=== PATIENT | male | born 1955 | race Caucasian/White ===

== ENCOUNTER 2017-10-07 13:26 | Emergency (ER) | payer SELFPAY ==
[~2017-10-07] VITALS: Ht 172.7 cm; Wt 72.6 kg
--- NOTE | 2017-10-07 13:40 | NUR ---
DRS OFFICE FOR WITNESSED SEIZURE AND TWITCHING, NO ORAL TRAUMA OR URINARY INCONTINENCE, NAD NOTED, VSS, RESP EVEN AND UNLABORED, PT WAS PUT ON MONITOR, WAITING FOR MD CLARKE.
[2017-10-07] MEDS ORDERED: LORAZEPAM 1 MG TABLET ONE (13:59)
[2017-10-07] MEDS ORDERED: LORAZEPAM 1 MG TABLET PO ONE (14:00)
[2017-10-07] MEDS ORDERED: clonazePAM 1 MG TABLET ONE (14:03)
[2017-10-07 14:12] LABS: BASOPHILS # (AUTO) 0.1 /CMM (0.0-0.2); BASOPHILS % (AUTO) 1.3 % (0.0-2.0); EOSINOPHILS % (AUTO) 0.3 % (0.0-6.0); HEMATOCRIT 36 % (39-51); HEMOGLOBIN 12.3 g/dL (13.5-17.5); LYMPHOCYTES # (AUTO) 2.6 /CMM (0.8-4.8); LYMPHOCYTES % (AUTO) 30.2 % (20.0-44.0); MEAN CORPUSCULAR HEMOGLOBIN 34 PG (26.0-33.0); MEAN CORPUSCULAR HGB CONC 34 g/dl (31.0-36.0); MEAN CORPUSCULAR VOLUME 99 fL (80-96); MONOCYTES # (AUTO) 0.5 /CMM (0.1-1.30); MONOCYTES % (AUTO) 5.6 % (2.0-12.0); NEUTROPHILS # (AUTO) 5.3 /CMM (1.8-8.9); NEUTROPHILS % (AUTO) 62.6 % (43.0-81.0); PLATELET COUNT (AUTO) 280 /CMM (150-450); RDW COEFFICIENT OF VARIATION 13.4 (11.5-15.0); RED BLOOD CELL COUNT(AUTO) 3.63 MIL/uL (4.5-6.0); WHITE BLOOD COUNT (AUTO) 8.5 K/uL (4.3-11.0)
[2017-10-07 14:17] LABS: CALCIUM, SERUM 8.5 mg/dL (8.5-10.1); CARBON DIOXIDE 26 mmol/L (21-32); CHLORIDE 103 mmol/L (98-107); GLUCOSE 93 mg/dL (74-106); POTASSIUM 3.3 mmol/L (3.5-5.1); SODIUM SERUM 139 mmol/L (136-145); UREA NITROGEN, BLOOD 21 mg/dL (7-18)
[2017-10-07 14:23] LABS: ALANINE AMINOTRANSFERASE 41 U/L (12-78); ALBUMIN 3.9 g/dL (3.4-5.0); ALKALINE PHOSPHATASE 40 U/L (46-116); ASPARTATE AMINOTRANSFERASE 24 U/L (15-37); BILIRUBIN,DIRECT 0.1 mg/dL (0.0-0.2); BILIRUBIN,TOTAL 0.5 mg/dL (0.2-1.0); TOTAL PROTEIN, SERUM 6.7 g/dL (6.4-8.2)
[2017-10-07 14:24] LABS: ALCOHOL, BLOOD < 3 mg/dL (0-0); SERUM AMMONIA 19 umol/L (11-32)
[2017-10-07 14:30] LABS: THYROID STIMULATING HORMONE 0.857 uIU/mL (0.358-3.74)
[2017-10-07] MEDS ORDERED: clonazePAM 1 MG TABLET PO ONE (14:30)
--- NOTE | 2017-10-07 14:46 | NUR ---
URINE SENT TO LAB
[2017-10-07 15:22] VITALS: BP 115/73
== END 2017-10-07 15:23 | disposition home or self-care (01) ==
LOC: ER 13:28
DX: R53.1 Weakness (principal); F41.0 Panic disorder [episodic paroxysmal anxiety]; G89.29 Other chronic pain; M54.9 Dorsalgia, unspecified; F32.9 Major depressive disorder, single episode, unspecified
CPT/HCPCS: 36415; 80048-TC; 80076-TC; 80305; 82140-TC; 84443-TC; 85025-TC; A4606; G0480; Z7610